=== PATIENT | female | born 1965 | race Caucasian/White ===

== ENCOUNTER 2022-12-10 22:29 | Emergency (ER) | payer OTHER ==
[~2022-12-10] VITALS: Ht 157.5 cm; Wt 63.5 kg
[2022-12-10 22:55] VITALS: BP 164/68
[2022-12-10] MEDS ORDERED: AMOX/CLAVULANATE 875 MG TABLET PO ONE (23:00)
[2022-12-10] MEDS ORDERED: TDAP [DIPH/PERTUSSIS/TET] 0.5 ML VIAL IM ONE ×2 (23:00→23:05)
[2022-12-10] MEDS ORDERED: AMOX-430 PO (23:03)
[2022-12-10] MEDS ORDERED: AMOX/CLAVULANATE 875 MG TABLET ONE (23:05)
--- NOTE | 2022-12-10 23:09 | NUR ---
EMT AT BED SIDE TO IRRIGATE THE WOUNDS
--- NOTE | 2022-12-10 23:15 | NUR ---
AT BEDSIDE FOR LAC REPAIR
--- NOTE | 2022-12-10 23:36 | NUR ---
Patient discharged to home in stable condition. Written and verbal after care instructions given. Patient verbalizes understanding of instruction.
== END 2022-12-10 23:39 | disposition home or self-care (01) ==
LOC: ER 22:32
DX: S51.812A Laceration without foreign body of left forearm, initial encounter (principal); W54.0XXA Bitten by dog, initial encounter; Y93.89 Activity, other specified; Y92.89 Other specified places as the place of occurrence of the external cause; Y99.8 Other external cause status
CPT/HCPCS: 90715